=== PATIENT | female | born 1950 | race Caucasian/White ===

== ENCOUNTER 2021-05-04 03:52 | Outpatient (CLI) | payer MEDICARE, OTHER, SELFPAY ==
[2021-05-04] MEDS: Inhaler, Assist Device 1 EACH MC (11:30)
[2021-05-04] MEDS: Albuterol HFA 18 GM 200 PUFF INH IH (11:30)
== END 2021-05-04 03:53 | disposition home or self-care (01) ==
PROVIDERS: PCP Nurse Practitioner Family; Visit Provider Internal Medicine Pulmonary Disease
DX: E88.01 Alpha-1-antitrypsin deficiency (principal); R06.00 Dyspnea, unspecified; Z14.8 Genetic carrier of other disease
CPT/HCPCS: 94060; 94726; 94729